=== PATIENT | female | born 1940 | race Caucasian/White ===

== ENCOUNTER → 2017-02-27 | Outpatient (CLI) | payer MEDICARE, OTHER ==
[~2017-02-27] MED LIST: ALEVE220 M1 PO; AMLODIPINE BES2.5 MG; ASPIRIN81 M1 PO; CLOPIDOGREL75 MG; FISH OIL 1,001000 MG PO; NEURONTIN100 MG; PRAVASTATIN SOD40 MG PO; PRINIVIL40 MG; PROTONIX; REQUIP2 MG; TUMS500 MG PO; VIT E PO
--- NOTE | ~2017-02-27 | CR181 ---
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 Referring Physician: Jagruti Grossman A.P.R.N. Ordering Physician: Jagruti Grossman A.P.R.N. Primary Care Physician: Jagruti Grossman A.P.R.N. MEDICAL IMAGING REPORT This report is preliminary unless electronic signature is present. EXAM Lumbar spine, 02/27 INDICATION Low back pain for 6 months. FINDINGS Three views of the lumbar spine were obtained. No comparison. There is grade 1 anterolisthesis of L5 on S1 with associated degenerative disc space narrowing at the same level. There is also degenerative disc disease at L4-5 and L3-4. There is multilevel facet arthropathy, particularly evident at L5-S1. No fractures are identified. There is diffuse atherosclerotic disease. IMPRESSION Multilevel degenerative disease and facet arthropathy, most severe at L5-S1 where there is also spondylolisthesis. No compression fractures are seen. Dictated by... Marcus Hayden Jr., M.D. THIS IS AN ELECTRONICALLY VERIFIED REPORT Marcus Hayden Jr., M.D. at 02/28/2017 3:37 PM GURPREET/cara TD: 02/28/2017 13:03 JOB #: [id number] MEDICAL IMAGING REPORT Page 1 of 1
--- NOTE | ~2017-02-27 | CR150 ---
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 Referring Physician: Jagruti Grossman A.P.R.N. Ordering Physician: Jagruti Grossman A.P.R.N. Primary Care Physician: Jagruti Grossman A.P.R.N. MEDICAL IMAGING REPORT This report is preliminary unless electronic signature is present. EXAM Pelvis and left hip 02/27 INDICATIONS Pelvis and left hip pain for 6 months TECHNIQUE AP pelvis was obtained in addition to a frog-leg left hip. COMPARISON Pelvis films from 11/21/2012 FINDINGS There is joint space narrowing in both hips, left greater than right, compatible with osteoarthritis. No fractures are identified. There is no evidence for osteonecrosis in the femoral heads. IMPRESSION Relatively mild osteoarthritis for patient age, left greater than right. No acute findings. Dictated by... Marcus Hayden Jr., M.D. THIS IS AN ELECTRONICALLY VERIFIED REPORT Marcus Hayden Jr., M.D. at 02/28/2017 3:37 PM RLK/to TD: 02/28/2017 13:03 JOB #: [id number] MEDICAL IMAGING REPORT [facility] A Service of [facility] RADIOLOGY TEXT RESULTS PATIENT: MASSIEL CLEMENTE LOCATION: [facility] : 38 UNIT #: [id number] AGE: [address]: Jagruti Grossman SEX: F ORDER DR: Page 1 of 1
--- NOTE | ~2017-02-27 | CR151 ---
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 Referring Physician: Jagruti Grossman A.P.R.N. Ordering Physician: Jagruti Grossman A.P.R.N. Primary Care Physician: Jagruti Grossman A.P.R.N. MEDICAL IMAGING REPORT This report is preliminary unless electronic signature is present. EXAM Pelvis and right hip 02/27 INDICATIONS Hip pain and pelvic pain for 6 months TECHNIQUE AP pelvis was obtained in addition to a frog-leg right hip. COMPARISON Pelvis films from 11/21/2012 FINDINGS There is joint space narrowing in the hips, left greater than the right, compatible with osteoarthritis. No fractures are seen. The femoral heads are normal without evidence of osteonecrosis. IMPRESSION Relatively mild osteoarthritis for patient age, left greater than right. No acute findings. Dictated by... Marcus Hayden Jr., M.D. THIS IS AN ELECTRONICALLY VERIFIED REPORT Marcus Hayden Jr., M.D. at 02/28/2017 3:37 PM RLK/to TD: 02/28/2017 13:02 JOB #: [id number] MEDICAL IMAGING REPORT [facility] A Service of [facility] RADIOLOGY TEXT RESULTS PATIENT: MASSIEL CLEMENTE LOCATION: [facility] : 38 UNIT #: [id number] AGE: [address]: Jagruti Grossman SEX: F ORDER DR: Page 1 of 1
== END | disposition home or self-care (01) ==
LOC: SRAD 15:19
DX: M54.5 Low back pain (principal); M25.551 Pain in right hip; M25.562 Pain in left knee; M51.36 Other intervertebral disc degeneration, lumbar region; M46.96 Unspecified inflammatory spondylopathy, lumbar region; M16.0 Bilateral primary osteoarthritis of hip
CPT/HCPCS: 72100; 73502

== ENCOUNTER 2017-05-02 15:24 | Emergency (ER) | payer MEDICARE, OTHER ==
[~2017-05-02] VITALS: Ht 154.9 cm; Wt 53.5 kg
--- NOTE | ~2017-05-02 | CR206 ---
[facility]. [facility] A Service of [facility] & [facility] RADIOLOGY TEXT RESULTS PATIENT: MASSIEL CLEMENTE LOCATION: [facility] : 38 UNIT #: [id number] AGE: [address]: Grzegorz Kendall SEX: F ORDER DR: [id number] [address] [address] [id number] E MR#: [id number] Acc #: [id number] NAME: MASSIEL CLEMENTE : 1940 SEX: F STUDY DATE/TIME: 05/02/2017 16:46 UNIT: [facility] ROOM: STUDY DESCRIPTION: CR Pelvis 1 or 2 Views Attending Physician: Grzegorz Kendall P.A.-C. Ordering Physician: Grzegorz Kendall P.A.-C. Primary Care Physician: Jagruti Grossman A.P.R.N. MEDICAL IMAGING REPORT This report is preliminary unless electronic signature is present. EXAM AP pelvis HISTORY Passed out in shower 2 days ago. Pain in tailbone. FINDINGS Single AP view pelvis demonstrates no fracture deformity. Mild degenerative changes lower lumbar spine. Moderate amount of colonic stool. No abnormal masses or calcifications. IMPRESSION No acute findings. Mild degenerative disc changes and facet arthropathy lower lumbar spine. Dictated by... Laurent Marie M.D. THIS IS AN ELECTRONICALLY VERIFIED REPORT Laurent Marie M.D. at 05/03/2017 2:20 PM ROB/chapin TD: 05/02/2017 21:36 JOB #: [id number] MEDICAL IMAGING REPORT Page 1 of 1
--- NOTE | ~2017-05-02 | CT71 ---
[facility] A Service of [facility] & [facility] / [facility] RADIOLOGY TEXT RESULTS PATIENT: MASSIEL CLEMENTE LOCATION: [facility] : 38 UNIT #: [id number] AGE: [address]: Grzegorz Kendall SEX: F ORDER DR: [id number] [address] [address] [id number] E MR#: [id number] Acc #: [id number] NAME: MASSIEL CLEMENTE : 1940 SEX: F STUDY DATE/TIME: 05/02/2017 16:41 UNIT: [facility] ROOM: STUDY DESCRIPTION: CT Head Wo Contrast Attending Physician: Grzegorz Kendall P.A.-C. Ordering Physician: Grzegorz Kendall P.A.-C. Primary Care Physician: Jagruti Grossman A.P.R.N. MEDICAL IMAGING REPORT This report is preliminary unless electronic signature is present. EXAM CT head 05/02/2017 HISTORY Fall. Passed out in shower on Monday, does not remember hitting head. TECHNIQUE CT head performed skull base through vertex without intravenous contrast. Some images degraded by streak/motion artifact. This CT exam was performed with one or more of the following radiation dose reduction techniques: automatic exposure control, adjustment of mA and/or kV according to patient size, and iterative reconstruction. FINDINGS Brainstem unremarkable. Cerebellum and cerebral hemispheres show normal wyatt matter-white matter differentiation overall. There is no evidence of the cranial hemorrhage or acute cortical ischemia. Extensive periventricular and deep white matter tract probable sequelae of chronic microvascular ischemia. Focal chronic lacunar infarct measuring about 1 cm in the right buckley radiata. It is chronic. 4-5 mm lacunar infarct left buckley radiata. The midline structures are nondisplaced. Patchy areas of diminished density in the bilateral basal ganglia favored to represent sequelae of chronic microvascular ischemia. Chronic 3-4 mm lacunar infarct right caudate facet and chronic 4 mm right putamen lacunar infarct. Small 2-3 mm foci of hypodensity at the inferior left putamen may represent lacunar infarcts or dilated perivascular spaces. Ventricles, cisterns and sulci show axfi-yu-nmqxwpyl generalized enlargement consistent with mild generalized atrophy. Extensive cavernous and carotid arterial calcification. The intraorbital soft tissues are unremarkable. There is no intra- or extraaxial mass effect or abnormal intracranial fluid collection. No fracture. The visualized paranasal STS. [facility] A Service of [facility] & [facility] / [facility] RADIOLOGY TEXT RESULTS PATIENT: MASSIEL CLEMENTE LOCATION: [facility] : 38 UNIT #: [id number] AGE: [address]: Grzegorz Kendall SEX: F ORDER DR: sinuses and mastoid air cells are clear. IMPRESSION 1. No acute abnormality in brain. If patient has ongoing neurologic symptoms, consider follow-up imaging. 2. Chronic changes include: Periventricular and deep white matter tract probable sequelae of chronic microvascular ischemia, bilateral basal ganglia chronic lacunar infarcts, bilateral chronic lacunar infarcts in the buckley radiata. See details of locations and sizes in body of report. There is gzzb-db-zgbndyju generalized atrophy. Extensive cavernous carotid arterial calcifications. 3. No fracture. Dictated by... Grzegorz Meade M.D. THIS IS AN ELECTRONICALLY VERIFIED REPORT Grzegorz Meade M.D. at 05/03/2017 7:56 PM HANSEL/chapin TD: 05/02/2017 21:56 JOB #: [id number] MEDICAL IMAGING REPORT Page 1 of 1
--- NOTE | ~2017-05-02 | CR63 ---
[facility]. [facility] A Service of [facility] & [facility] RADIOLOGY TEXT RESULTS PATIENT: MASSIEL CLEMENTE LOCATION: [facility] : 38 UNIT #: [id number] AGE: [address]: Grzegorz Kendall SEX: F ORDER DR: [id number] [address] [address] [id number] E MR#: [id number] Acc #: [id number] NAME: MASSIEL CLEMENTE : 1940 SEX: F STUDY DATE/TIME: 05/02/2017 16:46 UNIT: [facility] ROOM: STUDY DESCRIPTION: CR Chest 2 View Attending Physician: Grzegorz Kendall P.A.-C. Ordering Physician: Grzegorz Kendall P.A.-C. Primary Care Physician: Jagruti Grossman A.P.R.N. MEDICAL IMAGING REPORT This report is preliminary unless electronic signature is present. EXAM Two-view chest. HISTORY Passed out in shower 3 days ago. COMPARISON 05/18/2016 FINDINGS Two views of the chest demonstrates moderate lung volumes satisfactory technique. No infiltrates or effusions. Hilar parenchymal calcifications compatible with old granulomatous disease. Heart and great vessels unremarkable except for mild diffuse aortic calcifications compatible atherosclerotic disease. Osseous structures unremarkable for age. IMPRESSION No active disease. Dictated by... Laurent Marie M.D. THIS IS AN ELECTRONICALLY VERIFIED REPORT Laurent Marie M.D. at 05/03/2017 2:20 PM Mariza TD: 05/02/2017 21:53 JOB #: [id number] MEDICAL IMAGING REPORT Page 1 of 1
--- NOTE | ~2017-05-02 | EKG ---
PATIENT: MASSIEL CLEMENTE UNIT #: [id number] Ventricular Rate: 87 BPM Atrial Rate: 87 BPM P-R Interval: 146 ms QRS Duration: 82 ms Q-T Interval: 376 ms QTC Calculation(Bezet): 452 ms P [place]: 47 degrees Calculated R [place]: 24 degrees Calculated T [place]: 5 degrees Diagnosis Line: Normal sinus rhythm Diagnosis Line: Nonspecific ST abnormality Borderline ECG Diagnosis Line: No previous ECGs available Diagnosis Line: Reconfirmed by CONRAD BARNES MD ([id number]) on Diagnosis Line: 05/04/2017 7:02:28 PM INTERPRETING MD: CAMERON RAINES
--- NOTE | ~2017-05-02 | EKG ---
PATIENT: MASSIEL CLEMENTE UNIT #: [id number] Ventricular Rate: 87 BPM Atrial Rate: 87 BPM P-R Interval: 146 ms QRS Duration: 82 ms Q-T Interval: 376 ms QTC Calculation(Bezet): 452 ms P [place]: 47 degrees Calculated R [place]: 24 degrees Calculated T [place]: 5 degrees Diagnosis Line: Normal sinus rhythm Diagnosis Line: Nonspecific ST abnormality Diagnosis Line: No previous ECGs available Diagnosis Line: Confirmed by CONRAD BARNES MD ([id number]) on 05/04/2017 Diagnosis Line: 7:02:16 PM INTERPRETING MD: CAMERON RAINES
[~2017-05-02 15:24] MED LIST changes: -AMLODIPINE BES2.5 MG; -CLOPIDOGREL75 MG; -NEURONTIN100 MG; -PRAVASTATIN SOD40 MG PO; -PRINIVIL40 MG; -PROTONIX; -REQUIP2 MG
[2017-05-02] MEDS ORDERED: AMLODIPINE BES2.5 MG (15:55)
[2017-05-02] MEDS ORDERED: PRAVASTATIN SOD40 MG PO (15:55)
[2017-05-02] MEDS ORDERED: CLOPIDOGREL75 MG (15:55)
[2017-05-02] MEDS ORDERED: REQUIP2 MG (15:56)
[2017-05-02] MEDS ORDERED: PROTONIX (15:56)
[2017-05-02] MEDS ORDERED: NEURONTIN100 MG (15:56)
[2017-05-02] MEDS ORDERED: PRINIVIL40 MG (15:57)
[2017-05-02 16:39] LABS: BASOPHIL# 0.1 X10e3 (0-0.3); BASOPHIL% 0.7 % (0-2.5); EOSINOPHIL# 0.1 X10e3 (0-0.7); EOSINOPHIL% 1.1 % (0.0-7.0); HEMATOCRIT 26.4 % (35.0-45.0); HEMOGLOBIN 8.6 gm/dL (12.0-16.0); LYMPHOCYTE# 1.9 X10e3 (1.0-3.5); LYMPHOCYTE% 25.3 % (17.0-45.0); MEAN CELL VOLUME 82.6 FL (83-96); MEAN CORPUSCULAR HEMOGLOBIN 27.1 PG (28-34); MEAN CORPUSCULAR HGB CONC 32.8 g/dL (30-36); MEAN PLATELET VOLUME 8.6 FL (6.5-11.5); MONOCYTE# 0.5 X10e3 (0-1.0); MONOCYTE% 6.1 % (3.0-12.0); NEUTROPHIL% 66.8 % (40-75); PLATELET COUNT 385 X10e3 (140-420); RED BLOOD COUNT 3.19 X10e (3.90-5.30); RED CELL DISTRIBUTION WIDTH 17.1 % (11.0-15.5); URINE SOURCE CLEAN CATCH; WHITE BLOOD COUNT 7.6 X10e3 (4.0-10.5)
[2017-05-02 16:42] LABS: URINE APPEARANCE CLEAR; URINE BILIRUBIN NEG (NEG); URINE BLOOD NEG (NEG); URINE COLOR YELLOW; URINE GLUCOSE NEG (NORM); URINE KETONE NEG (NEG); URINE LEUKOCYTE ESTERASE 2+ (NEG); URINE NITRATE NEG (NEG); URINE PROTEIN NEG (NEG); URINE UROBILINOGEN 0.2 MG/DL (NORM)
[2017-05-02 16:44] LABS: DIFF IND NO; MICRO INDICATED? YES
[2017-05-02 16:52] LABS: POC - CKMB 1.8 ng/mL (0.0-7.9); POC - TROPONIN <0.05 ng/mL (<=0.05)
[2017-05-02 16:57] LABS: CULTURE INDICATED? YES; URINE BACTERIA 1+ (NEG); URINE RBC 0-2 /[HPF] (0-2); URINE SQUAMOUS EPITHELIAL CELL OCCAS /[HPF]
[2017-05-02 17:09] LABS: ALBUMIN SERUM 4.2 g/dL (3.5-5.0); ALKALINE PHOSPHATASE 63 U/L (32-92); ALT (SGPT) 14 U/L (10-40); AST (SGOT) 20 U/L (10-42); BILIRUBIN,TOTAL 0.4 mg/dL (0.2-2.0); BLOOD UREA NITROGEN 25 mg/dL (9-23); BUN/CREATININE RATIO 19.23; CALCIUM SERUM 8.6 mg/dL (8.4-10.2); CARBON DIOXIDE 20 mmol/L (22-31); CHLORIDE 105 mmol/L (100-111); CREATININE SERUM 1.3 mg/dL (0.6-1.4); GLOM FILT RATE Estimated 39.3 mL/min (>60); GLUCOSE FASTING 111 mg/dL (70-110); POTASSIUM 3.1 mmol/L (3.5-5.1); PROTEIN TOTAL SERUM 7.7 g/dL (6.0-8.3); SODIUM 131 mmol/L (135-145)
[2017-05-02 17:14] LABS: BILIRUBIN, DIRECT <0.1 mg/dL (0.0-0.2); BILIRUBIN,INDIRECT 0.3 mg/dL (0.0-0.9)
== END 2017-05-02 18:53 | disposition home or self-care (01) ==
LOC: SED 15:24
PROVIDERS: Physician Assistant
DX: R55 Syncope and collapse (principal); D64.9 Anemia, unspecified; R19.5 Other fecal abnormalities; K21.9 Gastro-esophageal reflux disease without esophagitis; I10 Essential (primary) hypertension; Z86.73 Personal history of transient ischemic attack (TIA), and cerebral infarction without residual deficits; Z79.82 Long term (current) use of aspirin; Z79.899 Other long term (current) drug therapy; Z88.5 Allergy status to narcotic agent
CPT/HCPCS: 36415; 70450; 71020; 72170; 80048; 80076; 81003; 82270; 82553; 83874; 84484; 85025; 87086; 93005; 99285